=== PATIENT | male | born 1970 | race African-American/Black ===

== ENCOUNTER 2018-01-04 01:11 | Emergency (ER) | payer MEDICAID ==
[~2018-01-04] VITALS: Ht 172.7 cm; Wt 72.0 kg
[~2018-01-04 01:11] MED LIST: IBUPROFEN
[2018-01-04] MEDS ORDERED: ACETAMINOPHEN 650MG/20.3ML UDC PO ONE (02:45)
[2018-01-04] MEDS ORDERED: ACETAMINOPHEN 325MG TABLET PO ONE (03:15)
[2018-01-04 04:19] LABS: *AMPHETAMINES SCREEN URINE NEGATIVE (NEGATIVE); *BARBITURATES SCREEN URINE NEGATIVE (NEGATIVE); CANNABINOID URINE SCREEN PRESUMTIVE POSITIVE (NEGATIVE); PHENCYCLIDINE URINE SCREEN NEGATIVE (NEGATIVE)
[2018-01-04 04:20] LABS: *BENZODIAZEPINES SCREEN URINE NEGATIVE (NEGATIVE); *COCAINE SCREEN URINE PRESUMTIVE POSITIVE (NEGATIVE); METHADONE URINE SCREEN NEGATIVE (NEGATIVE); OPIATES URINE SCREEN NEGATIVE (NEGATIVE)
[2018-01-04 05:34] VITALS: BP 127/67
== END 2018-01-04 05:36 | disposition home or self-care (01) ==
LOC: ER 02:08
DX: R51 Headache (principal); F14.10 Cocaine abuse, uncomplicated; F12.10 Cannabis abuse, uncomplicated; Y04.2XXA Assault by strike against or bumped into by another person, initial encounter; R03.0 Elevated blood-pressure reading, without diagnosis of hypertension; Y93.89 Activity, other specified; Y92.89 Other specified places as the place of occurrence of the external cause; Z86.73 Personal history of transient ischemic attack (TIA), and cerebral infarction without residual deficits
CPT/HCPCS: 36415; 80305; 99284; G0482

== ENCOUNTER 2021-06-11 13:51 | Emergency (ER) | payer MEDICAID, OTHER ==
[~2021-06-11] VITALS: Ht 180.3 cm; Wt 61.0 kg
[2021-06-11 15:23] LABS: CLARITY URINE CLEAR (CLEAR); COLOR URINE YELLOW (YELLOW); KETONES URINE NEGATIVE (NEGATIVE); LEUKOCYTE ESTERASE URINE NEGATIVE (NEGATIVE); NITRITE URINE NEGATIVE (NEGATIVE); OCCULT BLOOD URINE NEGATIVE (NEGATIVE); PROTEIN URINE NEGATIVE (NEGATIVE); SPECIFIC GRAVITY URINE 1.017 (1.005-1.030); UROBILINOGEN URINE 0.2 E.U./dL (0.2-1.0)
[2021-06-11 15:37] LABS: BASOPHILS % 1.2 % (0.0-2.0); EOSINOPHILS % 4.8 % (0.0-5.0); HEMATOCRIT. 38.5 % (42.0-52.0); HEMOGLOBIN. 12.2 g/dL (14.0-18.0); LYMPHOCYTES % 26.7 % (20.0-50.0); MEAN CORPUSCULAR VOLUME 85.2 fL (80.0-94.0); MEAN PLATELET VOLUME 8.8 fl (7.4-10.4); MONOCYTES % 9.2 % (2.0-8.0); NEUTROPHILS % 58.1 % (40.0-76.0); PLATELET 341 x1000/uL (130-400); RED BLOOD CELL COUNT 4.53 mill/uL (4.7-6.1); RED CELL DISTRIBUTION WIDTH 17.6 % (11.6-14.6)
[2021-06-11 15:43] LABS: CHLORIDE 106 mEq/L (98-107)
[2021-06-11 21:37] VITALS: BP 123/85
== END 2021-06-11 22:08 | disposition short-term general hospital (02) ==
LOC: ER 13:51 → CANBEDREQ 23:01
DX: R32 Unspecified urinary incontinence (principal); F14.10 Cocaine abuse, uncomplicated; Z98.890 Other specified postprocedural states; Z86.73 Personal history of transient ischemic attack (TIA), and cerebral infarction without residual deficits
CPT/HCPCS: 36415; 70450; 71045; 80053; 81003; 84484; 85025; 87086; 93005; 99285; Z7610; A4315

== ENCOUNTER 2025-01-23 11:30 | Emergency (ER) | payer OTHER ==
[~2025-01-23] VITALS: Ht 180.3 cm; Wt 65.0 kg
[~2025-01-23 11:30] MED LIST changes: +AMLO5TAB88 PO; +ATOR40TA70 PO; +CLOP75TA33 PO; -IBUPROFEN; +TAMS-54
[2025-01-23 11:37] VITALS: O2SAT 94
[2025-01-23 12:35] LABS: BASOPHILS % 1.0 % (0.0-2.0); EOSINOPHILS % 0.4 % (0.0-5.0); HEMATOCRIT. 33.5 % (42.0-52.0); HEMOGLOBIN. 10.7 g/dL (14.0-18.0); LYMPHOCYTES % 14.4 % (20.0-50.0); MEAN PLATELET VOLUME 8.8 fl (7.4-10.4); MONOCYTES % 6.6 % (2.0-8.0); NEUTROPHILS % 77.6 % (40.0-76.0); PLATELET 526 x1000/uL (130-400); RED BLOOD CELL COUNT 4.04 mill/uL (4.7-6.1); RED CELL DISTRIBUTION WIDTH 15.8 % (11.6-14.6)
[2025-01-23 12:49] LABS: CREATININE 1.1 mg/dL (0.6-1.3)
[2025-01-23 12:50] LABS: UREA NITROGEN BLOOD 17 mg/dL (9-23)
[2025-01-23 12:51] LABS: ASPARTATE AMINOTRANSFERASE 10 IU/L (<34)
[2025-01-23 12:52] LABS: BILIRUBIN DIRECT 0.1 mg/dL (<=3.0); BILIRUBIN TOTAL 0.4 mg/dL (0.1-1.0)
[2025-01-23] MEDS: SODIUM CHLORIDE 0.9% (SEPSIS BOLUS) IV ONE (12:54)
[2025-01-23] MEDS ORDERED: VISCOUS LIDOCAINE 2% 15 ML UDC MM STA (12:56)
[2025-01-23 12:59] LABS: PROTEIN TOTAL 9.3 g/dL (6.0-8.3)
[2025-01-23 13:01] LABS: INR 1.1
[2025-01-23] MEDS: PIPERACILLIN/TAZO 3.375G/50ML 50 ML IV SCH (13:26)
[2025-01-23] MEDS: PHENOL/SODIUM PHENOLATE 1.4% SRPAY 177ML MM ONE (13:30)
[2025-01-23] MEDS: VISCOUS LIDOCAINE 2% 15 ML UDC MM SCH (13:30)
[2025-01-23] MEDS: VANCOMYCIN 1G PREMIX 200 ML IV SCH (13:46)
[2025-01-23] MEDS: ACYCLOVIR INJ 400 MG in DEXT 5% WATER 100 ML IV SCH (14:00)
[2025-01-23] MEDS ORDERED: IOHEXOL-300 100 ML BOTTLE ONE (16:23)
[2025-01-23] MEDS ORDERED: IPRATROPIUM/ALBUTEROL 0.5-3(2.5)MG/3ML NEB HHN PRN (16:45)
[2025-01-23] MEDS ORDERED: GUAIFENESIN 200MG/10ML SUGAR FREE UDC PO PRN (16:45)
[2025-01-23] MEDS ORDERED: ONDANSETRON HCL 4MG/2ML INJ IV PRN (16:45)
[2025-01-23] MEDS ORDERED: ACETAMINOPHEN 650MG SUPP PR PRN (16:45)
[2025-01-23] MEDS ORDERED: DIPHENHYDRAMINE 50MG/ML VIAL IV PRN (16:45)
[2025-01-23] MEDS ORDERED: DEXT 5%/0.9% NACL 1,000 ML IV SCH (17:15)
[2025-01-23 17:47] VITALS: BP 161/87; PULSE 79; RESP 24; TEMP 37.2; O2SAT 97
[2025-01-25 05:11] LABS: HSV TYPE 2 SPECIFIC AB IGG Reactive (Non Reactive)
== END 2025-01-23 19:00 | disposition short-term general hospital (02) ==
LOC: ER 11:30 → CANBEDREQ 15:26 → ER 19:00
DX: A41.9 Sepsis, unspecified organism (principal); B37.0 Candidal stomatitis; R13.10 Dysphagia, unspecified; E11.9 Type 2 diabetes mellitus without complications; I10 Essential (primary) hypertension; Z79.02 Long term (current) use of antithrombotics/antiplatelets; Z79.899 Other long term (current) drug therapy; Z99.2 Dependence on renal dialysis
CPT/HCPCS: 86695; 86696; 80076; 80048; 83605; 85025; 85610; 87040; 36415; 84145; 71045; 70491; 93005; 96367; 96368; 96361; 96365; 99291; Q9967; J0133; J2543; J3373; J7060; J7030; Z7610; A4606

== ENCOUNTER 2025-06-06 20:41 | Emergency (ER) | payer MEDICAID, OTHER ==
[~2025-06-06] VITALS: Ht 172.7 cm; Wt 54.0 kg
[~2025-06-06 20:41] MED LIST changes: +SULF1TAB48 MT
[2025-06-06 20:47] VITALS: O2SAT 99
[2025-06-06] MEDS: ACETAMINOPHEN 500MG TABLET PO ONE (22:29)
[2025-06-06] MEDS: CYCLOBENZAPRINE 10MG TABLET PO ONE (22:29)
[2025-06-06] MEDS ORDERED: ACET-2708 MT (22:34)
[2025-06-06] MEDS ORDERED: LIDO-53 TP (22:34)
[2025-06-06 23:35] VITALS: BP 106/79; PULSE 100; RESP 18; TEMP 36.8; O2SAT 95
== END 2025-06-06 23:40 | disposition home or self-care (01) ==
LOC: ER 20:41
DX: M54.6 Pain in thoracic spine (principal); I10 Essential (primary) hypertension; E11.9 Type 2 diabetes mellitus without complications; Z86.73 Personal history of transient ischemic attack (TIA), and cerebral infarction without residual deficits; Z99.2 Dependence on renal dialysis; Z79.899 Other long term (current) drug therapy
CPT/HCPCS: 99283

== ENCOUNTER 2025-06-17 10:51 | Emergency (ER) | payer OTHER, MEDICAID ==
[~2025-06-17] VITALS: Ht 172.7 cm; Wt 50.0 kg
[~2025-06-17 10:51] MED LIST changes: +ACET-2708 MT; +LIDO-53 TP
[2025-06-17 10:53] VITALS: O2SAT 100
[2025-06-17] MEDS ORDERED: BISACODYL 5MG TABLET PO PRN (11:15)
[2025-06-17] MEDS ORDERED: SENNOSIDES/DOCUSATE SOD 8.6/50MG TABLET PO PRN (11:15)
[2025-06-17] MEDS: POLYETHYLENE GLYCOL 3350 (17GM) 1 DOSE PACK PO ONE (12:12)
[2025-06-17] MEDS: SODIUM CHLORIDE 0.9% 1,000 ML IV ONE (12:12)
[2025-06-17 12:26] LABS: HEMATOCRIT. 36.1 % (42.0-52.0); HEMOGLOBIN. 11.6 g/dL (14.0-18.0); RED BLOOD CELL COUNT 4.78 mill/uL (4.7-6.1); RED CELL DISTRIBUTION WIDTH 19.5 % (11.6-14.6)
[2025-06-17 12:32] LABS: CREATININE 1.2 mg/dL (0.6-1.3); ETHANOL BLOOD < 10 mg/dL (<10); UREA NITROGEN BLOOD 24 mg/dL (9-23)
[2025-06-17 12:33] LABS: PROTEIN TOTAL 8.3 g/dL (6.0-8.3); TROPONIN I HIGH SENSITIVITY < 4 ng/L (3.0-53)
[2025-06-17 12:34] LABS: ASPARTATE AMINOTRANSFERASE 147 IU/L (<34); BILIRUBIN DIRECT 0.6 mg/dL (<=3.0); BILIRUBIN TOTAL 1.0 mg/dL (0.1-1.0)
[2025-06-17 12:43] LABS: INR 1.2
[2025-06-17 13:19] LABS: BAND% 7.0 % (1.0-6.0); LYMPHOCYTES % MANUAL 48.0 % (20.0-50.0); MONOCYTES % MANUAL 8.0 % (2.0-8.0); NEUTROPHILS % MANUAL 37.0 % (45.0-75.0); NUCLEATED RED BLOOD CELLS 6 /100 WBC
[2025-06-17 13:28] LABS: MEAN PLATELET VOLUME 7.3 fl (7.4-10.4); PLATELET 38 x1000/uL (130-400)
[2025-06-17 13:29] LABS: PLATELET ESTIMATE MARKEDLY DECREASED
[2025-06-17 14:10] LABS: INFLUENZA TYPE A Presumptive Negative (Pres. Neg.); INFLUENZA TYPE B Presumptive Negative (Pres. Neg.)
[2025-06-17 14:11] LABS: RESPIRATORY SYNCYTIAL VIRUS Not Detected (Not Detectd)
[2025-06-17 15:30] LABS: TROPONIN I HIGH SENSITIVITY < 4 ng/L (3.0-53)
[2025-06-17] MEDS ORDERED: ACETAMINOPHEN 325MG TABLET PO PRN (15:45)
[2025-06-17] MEDS ORDERED: MAGNESIUM/ALUMINUM HYDROXIDE/SIMETHICONE 30ML UDC PO PRN (15:45)
[2025-06-17] MEDS ORDERED: ZOLPIDEM TARTRATE 5MG TABLET PO PRN (15:45)
[2025-06-17] MEDS ORDERED: CLONIDINE 0.1MG TABLET PO PRN (15:45)
[2025-06-17] MEDS ORDERED: HYDROCODONE/ACETAMINOPHEN 5/325MG TABLET PO PRN (15:45)
[2025-06-17] MEDS ORDERED: ONDANSETRON HCL 4MG/2ML INJ IV PRN (15:45)
[2025-06-17] MEDS ORDERED: MORPHINE SULFATE 2 MG/ML INJ (NOT FOR IM USE) IV PRN (15:45)
[2025-06-17] MEDS ORDERED: NALOXONE HCL 0.4MG/ML VIAL IV PRN (16:00)
[2025-06-17 16:51] VITALS: BP 119/86; PULSE 99; RESP 16; TEMP 36.6; O2SAT 100
[2025-06-18] MEDS ORDERED: PANTOPRAZOLE SODIUM 40 MG/VIAL IV SCH (09:00)
== END 2025-06-17 17:13 | disposition short-term general hospital (02) ==
LOC: ER 10:51 → EDBEDREQ 14:30 → EDBEDREQSVC 14:30 → EDBEDREQTM 14:30 → CANRESERV 14:39 → ENRESERV 14:39 → CANRESERV 14:40 → ER 17:13 → CMPBEDREQ 20:27
DX: K59.00 Constipation, unspecified (principal); E11.9 Type 2 diabetes mellitus without complications; I10 Essential (primary) hypertension; Z79.899 Other long term (current) drug therapy; Z20.822 Contact with and (suspected) exposure to COVID-19
CPT/HCPCS: 80076; 80048; 80320; 82140; 83690; 83735; 85025; 85610; 87420; 84484; 87804 ×2; 36415; 71045; 74177; 93005; 96360; 99291; 87426; Z7610 ×2; J7030; A4606; G0480